=== PATIENT | female | born 1945 | race Caucasian/White ===

== ENCOUNTER 2019-04-14 14:35 | Outpatient (CLI) | payer OTHER, SELFPAY ==
--- NOTE | ~2019-04-14 | DEXA_ITS ---
Bone Density Report Name: Verito Carranza Age: 74 Sex: Female Ethnicity: White Date of : 1945 Indication: hyperparathyroidism; parental hip fracture; height loss; postmenopausal Referring Provider: Iliana Rider Study: Bone densitometry was performed. Exam Date: April 14, 2019 Accession number: [id number] Bone Density: Region BMD T-score Z-score Classification AP Spine (L3, L4) 1.636 4.9 7.3 Normal Femoral Neck (Left) 0.895 0.4 2.4 Normal Total Hip (Left) 1.169 1.9 3.5 Normal Total Hip Bilateral Avg 1.186 2.0 3.7 Normal Femoral Neck (Right) 1.018 1.5 3.5 Normal Total Hip (Right) 1.203 2.1 3.8 Normal World Health Organization criteria for BMD impression classify patients as: Normal (T-score at or above -1.0), Osteopenia (T-score between -1.0 and -2.5), or Osteoporosis (T-score at or below -2.5). 10-year Fracture Risk: FRAX not reported because: All T-scores for Spine Total, Hip Total, Femoral Neck at or above -1.0 Previous Exams: Region Exam Age BMD T-score BMD Change BMD Change Date g/cm2 vs Baseline vs Previous AP Spine(L3, L4) 04/14/2019 74 1.636 4.9 0.067(4.3%)# 0.067(4.3%)# 11/24/2014 69 1.570 4.3 Total Hip(Left) 04/14/2019 74 1.169 1.9 0.047(4.2%)# 0.047(4.2%)# 11/24/2014 69 1.122 1.5 Total Hip(Right) 04/14/2019 74 1.203 2.1 0.047(4.1%)# 0.047(4.1%)# 11/24/2014 69 1.155 1.7 *Denotes significance at 95% confidence level, LSC for AP Spine = 0.022 g/cm2, LSC for Total Hip = 0.027 g/cm2 Clinical Information Provided by Patient: Parent has had a hip fracture Has used the following medications: HRT (i.e. estrogen/hormone therapy), Vitamin D Has the following medical conditions: Hyperparathyroidism Patient maximum height was 66 Menopause Age: 51 Drinks caffeinated beverages Onset of menses at age 14 Number of children 0 Impression: The patient has normal bone mass. The patient has risk factors, including: parental hip fracture. No significant bone loss was observed. Discussion: LOW RISK OF FRACTURE; BONE DENSITY IS WELL ABOVE THE MINIMUM DESIRABLE LEVEL AND ABOVE AVERAGE FOR AGE AND SEX AT ALL SKELETAL SITES TESTED. This person's bone density is above expected limits for age and sex. This is rarely clinically significant, but should be pursued if there are significant musculoskeletal complaints. The patient should follow a healthful lifestyle (good nutrition with adequate calcium and vitamin D
== END 2019-04-14 14:36 | disposition home or self-care (01) ==
LOC: ANHIMG 14:37
PROVIDERS: PCP Internal Medicine; Visit Provider Internal Medicine Endocrinology, Diabetes & Metabolism
DX: E21.3 Hyperparathyroidism, unspecified (principal)
CPT/HCPCS: 77080

== ENCOUNTER 2019-09-02 11:12 | Outpatient (CLI) | payer OTHER, SELFPAY ==
--- NOTE | ~2019-09-02 | US_ITS ---
EXAMINATION: US thyroid DATE: 09/02/2019 12:09 INDICATION: Hypothyroidism, unspecified. Thyroid nodule. TECHNIQUE: Multiple ultrasound images of the thyroid were obtained. COMPARISON: Ultrasound 08/03/2014, 04/07/2013 FINDINGS: The right thyroid lobe measures 4.5 x 1.4 x 1.2 cm. The left thyroid lobe measures 3.1 x 1.4 x 0.8 c m. In the right thyroid lobe, there is a 13 mm solid, hypoechoic, oaqvx-rorm-tajh nodule with ill-de fined margin without echogenic foci (TI-RADS TR4) that measured 11 mm on 04/07/13. In the right thyroi d lobe, there is a 1.8 cm solid, hypoechoic, eueyx-vhoy-absd nodule with smooth margin and macrocalci fications (TR4) status post two nondiagnostic ultrasound-guided fine-needle aspiration procedures, st able from 04/07/13. In the left thyroid lobe, there is a 7 mm solid, isoechoic, fxpcn-felb-fvrf nodule with ill-defined margin without echogenic foci (TR3). In the left thyroid lobe, there is an 8 mm carol id, hypoechoic, xigmn-fqdd-kzsn nodule with ill-defined margin and macrocalcifications (TR4). IMPRESSION: 1. Chronic multinodular goiter, likely not clinically significant. No follow-up is needed. Reviewed, dictated and finalized at location A.
== END 2019-09-02 11:13 | disposition home or self-care (01) ==
PROVIDERS: PCP Internal Medicine; Visit Provider Internal Medicine Endocrinology, Diabetes & Metabolism
DX: E03.9 Hypothyroidism, unspecified (principal); E04.2 Nontoxic multinodular goiter
CPT/HCPCS: 76536

== ENCOUNTER 2019-12-09 09:35 | Outpatient (CLI) | payer OTHER, SELFPAY ==
--- NOTE | ~2019-12-09 | MM_ITS ---
EXAMINATION: MM screening malka BI w [place] HISTORY: Screening mammogram TECHNIQUE: Craniocaudal and mediolateral oblique 3-D tomosynthesis images were obtained and synthetic 2-D images were generated. CAD analysis was submitted and interpreted. COMPARISON: 11/29/2018, 11/27/2017, 11/24/2016 bilateral digital screening mammogram examinations BREAST PARENCHYMAL COMPOSITION: The breasts are almost entirely fatty. FINDINGS: There is no evidence of suspicious mass, calcification, or architectural distortion to sugg est malignancy in either breast. There has been no suspicious interval change. IMPRESSION: 1. No mammographic evidence of malignancy. 2. Recommend routine screening mammography in one year. BI-RADS Category 1: Negative Reviewed, dictated and finalized at location A.
== END 2019-12-09 09:36 | disposition home or self-care (01) ==
PROVIDERS: PCP Internal Medicine; Visit Provider Physician Assistant
DX: Z12.31 Encounter for screening mammogram for malignant neoplasm of breast (principal)
CPT/HCPCS: 77063; 77067

== ENCOUNTER 2020-12-14 08:08 | Outpatient (CLI) | payer OTHER, SELFPAY ==
--- NOTE | ~2020-12-14 | MM_ITS ---
EXAMINATION: MM screening malka BI w [place] HISTORY: Screening mammogram TECHNIQUE: Craniocaudal and mediolateral oblique 3-D tomosynthesis images were obtained and synthetic 2-D images were generated. CAD analysis was submitted and interpreted. COMPARISON: 12/09/2019, 11/29/2018, 12/07/2017 bilateral digital screening mammogram examinations BREAST PARENCHYMAL COMPOSITION: The breasts are almost entirely fatty. FINDINGS: There is no evidence of suspicious mass, calcification, or architectural distortion to sugg est malignancy in either breast. There has been no suspicious interval change. IMPRESSION: 1. No mammographic evidence of malignancy. 2. Recommend routine screening mammography in one year. BI-RADS Category 1: Negative Reviewed, dictated and finalized at location A.
== END 2020-12-14 08:09 | disposition home or self-care (01) ==
LOC: ANHIMG 08:11
PROVIDERS: PCP Physician Assistant; Visit Provider Physician Assistant
DX: Z12.31 Encounter for screening mammogram for malignant neoplasm of breast (principal)
CPT/HCPCS: 77063; 77067

== ENCOUNTER 2022-02-03 09:08 | Outpatient (CLI) | payer OTHER, SELFPAY ==
--- NOTE | ~2022-02-03 | MM_ITS ---
EXAMINATION: MM screening malka BI w [place] HISTORY: Screening TECHNIQUE: Craniocaudal and mediolateral oblique 3-D tomosynthesis images were obtained and synthetic 2-D images were generated. CAD analysis was submitted and interpreted. COMPARISON: Comparison to multiple prior studies sequentially, with oldest reviewed study dated 07/2016. BREAST PARENCHYMAL COMPOSITION: The breasts are almost entirely fatty. FINDINGS: There is no evidence of suspicious mass, calcification, or architectural distortion to sugg est malignancy in either breast. There has been no suspicious interval change. IMPRESSION: 1. No mammographic evidence of malignancy. 2. Recommend routine screening mammography in one year. BI-RADS Category 1: Negative Reviewed, dictated and finalized at location B. [facility]
== END 2022-02-03 09:09 | disposition home or self-care (01) ==
LOC: ANHIMG 09:10
PROVIDERS: PCP Physician Assistant; Visit Provider Physician Assistant
DX: Z12.31 Encounter for screening mammogram for malignant neoplasm of breast (principal)
CPT/HCPCS: 77063; 77067

== ENCOUNTER 2023-04-24 09:21 | Outpatient (CLI) | payer OTHER, SELFPAY ==
--- NOTE | ~2023-04-24 | MM_ITS ---
EXAMINATION: MM screening malka BI w [place] HISTORY: Screening mammogram TECHNIQUE: Craniocaudal and mediolateral oblique 3-D tomosynthesis images were obtained and synthetic 2-D images were generated. CAD analysis was submitted and interpreted. COMPARISON: 02/03/2022, 12/14/2020, 12/09/2019 bilateral screening mammogram examinations BREAST PARENCHYMAL COMPOSITION: The breasts are almost entirely fatty. FINDINGS: There is no evidence of suspicious mass, calcification, or architectural distortion to sugg est malignancy in either breast. There has been no suspicious interval change. IMPRESSION: 1. No mammographic evidence of malignancy. 2. Recommend routine screening mammography in one year. BI-RADS Category 1: Negative Reviewed, dictated and finalized at location A. [employer]
== END 2023-04-24 09:22 | disposition home or self-care (01) ==
PROVIDERS: PCP Physician Assistant; Visit Provider Physician Assistant
DX: Z12.31 Encounter for screening mammogram for malignant neoplasm of breast (principal)
CPT/HCPCS: 77063; 77067

== ENCOUNTER 2023-06-28 10:55 | Outpatient (CLI) | payer OTHER, SELFPAY ==
--- NOTE | ~2023-06-28 | US_ITS ---
EXAMINATION: US thyroid DATE: 06/28/2023 11:48 INDICATION: Nontoxic single thyroid nodule TECHNIQUE: Multiple ultrasound images of the thyroid were obtained. COMPARISON: 09/02/2019 and 04/07/2013 FINDINGS: The right thyroid lobe measures 4.7 x 1.3 x 1.2 cm. The left thyroid lobe measures 2.8 x 0.7 x 1.3 c m. No significant interval change in a 1 cm solid hypoechoic wider than tall nodule with smooth breanna ins and without echogenic foci at the superior right thyroid lobe. (TI-RADS 4, moderately suspicious , FNA if >=1.5 cm, annual followup is >=1 cm). Also without significant interval changes a larger 1.4 cm wider than tall TI RADS 4 solid hypoechoic nodules at the inferior right thyroid with smooth breanna ins coarse shadowing calcification. Finally there is an unchanged 7 mm wider than tall TI RADS 4 carol id hypoechoic nodule with smooth margins and peripheral shadowing calcification at the inferior left thyroid. IMPRESSION: 1. Chronic multinodular goiter. Given the stability over 10 years and patient age, further follow-up is unnecessary. Reviewed, dictated and finalized at location A. IMPRESSION: 1. Chronic multinodular goiter. Given the stability over 10 years and patient a ge, further follow-up is unnecessary.
== END 2023-06-28 10:56 | disposition home or self-care (01) ==
PROVIDERS: PCP Physician Assistant; Visit Provider Internal Medicine Endocrinology, Diabetes & Metabolism
DX: E04.2 Nontoxic multinodular goiter (principal)
CPT/HCPCS: 76536

== ENCOUNTER 2024-06-12 09:49 | Outpatient (CLI) | payer OTHER, SELFPAY ==
--- NOTE | ~2024-06-12 | DEXA_ITS ---
Bone Density Report Name: ZULY HUNTER Age: 79 Sex: Female Ethnicity: White Date of : 1945 Indication: hyperparathyroidism; height loss; Referring Provider: OMAR SCHULZ Study: Bone densitometry was performed. Exam Date: June 12, 2024 Accession number: [id number] Bone Density: Region BMD T-score Z-score Classification AP Spine(L1-L4) 1.618 5.2 7.8 Normal Femoral Neck (Left) 0.947 0.9 3.1 Normal Total Hip (Left) 1.012 0.6 2.5 Normal Femoral Neck (Right) 1.068 2.0 4.2 Normal Total Hip (Right) 1.121 1.5 3.4 Normal Total Hip Mean 1.066 1.1 3.0 Normal World Health Organization criteria for BMD impression classify patients as: Normal (T-score at or above -1.0), Osteopenia (T-score between -1.0 and -2.5), or Osteoporosis (T-score at or below -2.5). 10-year Fracture Risk: FRAX not reported because: All T-scores for Spine Total, Hip Total, Femoral Neck at or above -1.0 Previous Exams: Region Exam Age BMD T-score BMD Change BMD Change Date g/cm2 vs Baseline vs Previous AP Spine (L1-L4) 06/12/2024 79 1.618 5.2 0.033 (2.1%)* 0.033 (2.1%)* 11/24/2014 69 1.585 4.9 Total Hip(Left) 06/12/2024 79 1.012 0.6 -0.110 (-9.8%) -0.157 (-13.5% 04/14/2019 74 1.169 1.9 0.047 (4.2%)# 0.047 (4.2%)# 11/24/2014 69 1.122 1.5 Total Hip(Right) 06/12/2024 79 1.121 1.5 -0.035 (-3.0%) -0.082 (-6.8%) 04/14/2019 74 1.203 2.1 0.047 (4.1%)# 0.047 (4.1%)# 11/24/2014 69 1.155 1.7 *Denotes significance at 95% confidence level, LSC for AP Spine = 0.022 g/cm2, LSC for Total Hip = 0.027 g/cm2 # Denotes dissimilar scan types or analysis methods Clinical Information Provided by Patient: Has the following medical conditions: Hyperparathyroidism Patient maximum height was 66 Menopause Age: 51 Drinks caffeinated beverages Onset of menses at age 13 Number of children 0 Impression: The patient has normal bone mass. No significant bone loss was observed. Discussion: LOW RISK OF FRACTURE; BONE DENSITY IS WELL ABOVE THE MINIMUM DESIRABLE LEVEL AND ABOVE AVERAGE FOR AGE AND SEX AT ALL SKELETAL SITES TESTED. This person's bone density is above expected limits for age and sex. This is rarely clinically significant, but should be pursued if there are significant musculoskeletal complaints. The patient should follow a healthful lifestyle (good nutrition with adequate calcium and vitamin D, and appropriate weight-bearing exercise). Follow-Up: Consider repeating this study in 5 years or sooner if there is some new clinical indication. Reported by: RUDDY on 06/12/2024 10:24:00 AM. Reviewed, dictated and finalized at location A. [facility]
--- OUTSIDE RECORDS SUMMARY | 2024-06-12 10:51 | XMS_ITS | Clinical Summary ---
Author Organization [facility] Address [address] [place] [address] Care Team Providers Care Dicer Machine Operator Name Role Phone Jean-Paul Mcnamara DO Primary Care Provider [phone] Source Comments [facility],non-owned Affiliates and Associated Physician Practices is amultiple site organization consisting of ambulatory clinics and hospital sitesin [place], [place], [place] and [place]. This disclosure is being madepursuant to the Care Everywhere program and may not contain all information available regarding this patient. Last updated 17.[facility] Allergies No known active allergies Immunizations Immunization Administration Dates Next Due INFLUENZA VACCINE, HIGH-DOSE , QUADR. (FLUZONE HIGH-DOSE QUADRIVALENT; 65Y+), 0.7 ML (HD-IIV4) 11/13/2019,11/19/2018,12/12/2017,2016 Social History Tobacco Use Types Packs/Day Years Used Date Smoking Tobacco: Never Assessed Comments Unknown Sex and Gender Information Value Date Recorded Sex Assigned at Not on file Legal Sex Female 9:58 AM CDT Gender Identity Not on file Sexual Orientation Not on file Plan of Treatment Health Maintenance Due Date Last Done Comments BONE DENSITY TESTING 1945 HEPATITIS C SCREENING 04/03/1964 DTAP/TDAP/TD VACCINES (1 - Tdap) 1965 PNEUMOCOCCAL VACCINE 50+ (1 of 1 - PCV) 1996 ZOSTER VACCINE (1 of 2) 1996 Respiratory Syncytial Virus (RSV) Vaccine Pt: or over 60 yrs (1 - 1-dose 75+ series) 2021 COVID-19 VACCINE (1 - 2023- season) 2023 DEPRESSION SCREENING 02/20/2024 INFLUENZA VACCINE (Season Ended) 2024 11/13/2019, 11/19/2018, 12/12/2017, Additional history exists HEPATITIS B VACCINE Aged Out No longe r eligible based on patient's age to complete this topic HIB VACCINE Aged Out No longer eligi ble based on patient's age to complete this topic HPV VACCINE Aged Out No longer eligi ble based on patient's age to complete this topic MENINGOCOCCAL (Group B) VACCINE SHARED DECISION-MAKING Aged Out No longer eligible based on patient's age to complete this topic MENINGOCOCCAL GROUPS A/C/Y/W VACCINE Aged Out No longer eligible based on patient's age to complete [place] [id number] [email or web address] Care Teams Dicer Machine Operator Relationship Specialty Start Date End Date Jean-Paul Mcnamara DO [address] [facility] [address] [place] [address] PCP - General Internal Medicine 12/04/16
== END 2024-06-12 09:50 | disposition home or self-care (01) ==
PROVIDERS: Visit Provider Internal Medicine Endocrinology, Diabetes & Metabolism
DX: Z78.0 Asymptomatic menopausal state (principal)
CPT/HCPCS: 77080

== ENCOUNTER 2024-07-10 15:18 | Outpatient (CLI) | payer OTHER, SELFPAY ==
--- NOTE | ~2024-07-10 | MM_ITS ---
EXAMINATION: MM screening malka BI w [place] HISTORY: Screening TECHNIQUE: Craniocaudal and mediolateral oblique 3-D tomosynthesis images were obtained and synthetic 2-D images were generated. CAD analysis was submitted and interpreted. COMPARISON: Comparison to multiple prior studies sequentially, with oldest reviewed study dated 10/2017. BREAST PARENCHYMAL COMPOSITION: Not Dense: The breasts are almost entirely fatty. FINDINGS: There is no evidence of suspicious mass, calcification, or architectural distortion to sugg est malignancy in either breast. There has been no suspicious interval change. IMPRESSION: 1. No mammographic evidence of malignancy. 2. Recommend routine screening mammography in one year. BI-RADS Category 1: Negative Reviewed, dictated and finalized at location B.
--- OUTSIDE RECORDS SUMMARY | 2024-07-10 15:23 | XMS_ITS | Clinical Summary ---
Author Organization [email or web address] Address [address] [place] [address] Care Team Providers Care Inventory Control Clerk Name Role Phone Jean-Paul Mcnamara DO Primary Care Provider [phone] Source Comments [email or web address],non-owned Affiliates and Associated Physician Practices is amultiple site organization consisting of ambulatory clinics and hospital sitesin [place], [place], [place] and [place]. This disclosure is being madepursuant to the Care Everywhere program and may not contain all information available regarding this patient. Last updated 17.[email or web address] Allergies No known active allergies Immunizations Immunization [...] patient's age to complete [place] [id number] [employer] Care Teams Inventory Control Clerk Relationship Specialty Start Date End Date Jean-Paul Mcnamara DO [address] [place] [address] PCP - General Internal Medicine 12/04/16
== END 2024-07-10 15:19 | disposition home or self-care (01) ==
LOC: ANHIMG 15:21
PROVIDERS: PCP Nurse Practitioner; Visit Provider Nurse Practitioner
DX: Z12.31 Encounter for screening mammogram for malignant neoplasm of breast (principal)
CPT/HCPCS: 77063; 77067